=== PATIENT | female | born 1990 | race Caucasian/White ===

== ENCOUNTER 2018-08-14 23:01 | Emergency (ER) | payer MEDICAID, OTHER ==
--- NOTE | 2018-08-14 23:35 | ED Physician Chart ---
ED Chief Complaint/HPI - Patient Information Date Seen:: 08/14/18 Time Seen:: 23:28 Chief Complaint:: Lower abdominal pain History of Present Illness:: 28 yo female, , last was 14 months ago, had low abdominal pain for 2-3 days each month in between menstrual cycles for 4 months. Today's episode of abdominal pain and cramp started this morning and was the worst. Pt could not tolerate any more thus presented to ER. Pt denied any fever, nausea or vomiting. 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, No abnormal vaginal bleed Musculoskeletal: No bone or joint pain Neurological: No focal symptoms ED Past Medical History - Past Medical History Past Medical History: No significant medical hx Social History: Non Smoker, Alcohol (Socially), No Drug Use Surgical History: other (tonsilectomy, D&C x 2) Family Medical History - Family Member Mother History Unknown: Yes ED Physical Exam - Physical Examination General/Constitutional: Awake, Alert Head: Atraumatic Eyes: PERRL Skin: No skin lesions ENMT: Nasal exam nl Neck: No nuchal rigidity Respiratory: No Wheeze/Rhonchi/Rales Cardio Vascular: RRR, No murmur, gallop, rubs, NL S1 S2 Other GI comments:: Suprapubic and LLQ tenderness Extremities: normal strength in all extremities Neuro/Psych: No focal deficits ED Labs/Radiology/EKG Results - Lab Results Results: Laboratory Last Values WBC 7.8 Th/cmm (4.8-10.8) 08/14/18 23:56 RBC 4.74 Mil/cmm (3.80-5.10) 08/14/18 23:56 Hgb 14.2 gm/dL (12-16) 08/14/18 23:56 Hct 42.2 % (41.0-60) 08/14/18 23:56 MCV 89.0 fl (81-100) 08/14/18 23:56 MCH 29.9 pg (27.0-31.0) 08/14/18 23:56 MCHC Differential 33.6 pg (28.0-36.0) 08/14/18 23:56 RDW 12.7 % (11.5-20.0) 08/14/18 23:56 Plt Count 287 Th/cmm (150-400) 08/14/18 23:56 MPV 7.7 fl 08/14/18 23:56 Neutrophils % 63.1 % (40.0-80.0) 08/14/18 23:56 Lymphocytes % 26.5 % (20.0-50.0) 08/14/18 23:56 Monocytes % 7.1 % (2.0-10.0) 08/14/18 23:56 Eosinophils % 2.4 % (0.0-5.0) 08/14/18 23:56 Basophils % 0.9 % (0.0-2.0) 08/14/18 23:56 PT 10.2 SECONDS (9.5-11.5) 08/14/18 23:56 INR 0.98 (0.5-1.4) 08/14/18 23:56 PTT (Actin FS) 25.2 SECONDS (26.0-38.0) L 08/14/18 23:56 Sodium 138 mEq/L (136-145) 08/14/18 23:56 Potassium 3.7 mEq/L (3.5-5.1) 08/14/18 23:56 Chloride 104 mEq/L (98-107) 08/14/18 23:56 Carbon Dioxide 25.9 mEq/L (21.0-31.0) 08/14/18 23:56 Anion Gap 11.8 (7.0-16.0) 08/14/18 23:56 BUN 16 mg/dL (7-25) 08/14/18 23:56 Creatinine 0.7 mg/dL (0.6-1.2) 08/14/18 23:56 Est GFR ( Amer) > 60.0 ml/min (>90) 08/14/18 23:56 Est GFR (Non-Af Amer) > 60.0 ml/min 08/14/18 23:56 BUN/Creatinine Ratio 22.9 08/14/18 23:56 Glucose 85 mg/dL (70-105) 08/14/18 23:56 Calcium 8.9 mg/dL (8.6-10.3) 08/14/18 23:56 Total Bilirubin 0.6 mg/dL (0.3-1.0) 08/14/18 23:56 AST 17 U/L (13-39) 08/14/18 23:56 ALT 13 U/L (7-52) 08/14/18 23:56 Alkaline Phosphatase 35 U/L (34-104) 08/14/18 23:56 Total Protein 6.7 gm/dL (6.0-8.3) 08/14/18 23:56 Albumin 4.4 gm/dL (3.7-5.3) 08/14/18 23:56 Globulin 2.3 gm/dL 08/14/18 23:56 Albumin/Globulin Ratio 1.9 (1.0-1.8) H 08/14/18 23:56 Lipase 19 U/L (11-82) 08/14/18 23:56 Urine Source MIDSTREAM 08/14/18 23:00 Urine Color YELLOW 08/14/18 23:00 Urine Clarity CLEAR (CLEAR) 08/14/18 23:00 Urine pH 7.5 (4.6 - 8.0) 08/14/18 23:00 Ur Specific [place] 1.015 (1.005-1.030) 08/14/18 23:00 Urine Protein NEGATIVE mg/dL (NEGATIVE) 08/14/18 23:00 Urine Glucose (UA) NEGATIVE mg/dL (NEGATIVE) 08/14/18 23:00 Urine Ketones NEGATIVE mg/dL (NEGATIVE) 08/14/18 23:00 Urine Blood NEGATIVE (NEGATIVE) 08/14/18 23:00 Urine Nitrate NEGATIVE (NEGATIVE) 08/14/18 23:00 Urine Bilirubin NEGATIVE (NEGATIVE) 08/14/18 23:00 Urine Urobilinogen 0.2 E.U./dL (0.2 - 1.0) 08/14/18 23:00 Ur Leukocyte Esterase NEGATIVE (NEGATIVE) 08/14/18 23:00 Urine Test NEGATIVE 08/14/18 23:00 - Radiology Results Results: Pelvic U/S: negative exam ED Assessment - Assessment General Assessment: Premenstrual syndrome Assessment/Comments:: Toradol 30mg IV ED Septic Shock - . Is Septic Shock (SBP<90, OR Lactate>4 mmol\L) present?: No - <6hrs of presentation: Vital Signs: Vital Signs - 8 hr 08/14/18 23:05 Temp 98.1 F HR 68 RR 18 BP 126/86 O2 Sat % 99 ED Reassessment (Disposition) - Reassessment Reassessment Condition:: Improved - Aftercare/Follow up Instructions Notes:: Follow up PCP and Press [employer], or return to ER if symptoms worsen. - Patient Disposition Discharge/Transfer:: Home
[2018-08-15 00:20] LABS: % BASOPHILS 0.9 % (0.0-2.0); % EOSINOPHILS 2.4 % (0.0-5.0); % LYMPHOCYTES 26.5 % (20.0-50.0); % MONOCYTES 7.1 % (2.0-10.0); % NEUTROPHILS 63.1 % (40.0-80.0); BASOPHILE ABSOLUTE 0.1 Th/cumm (0-0.2); EOSINOPHILE ABSOLUTE 0.2 Th/cmm (0.1-0.4); HEMATOCRIT 42.2 % (41.0-60); HEMOGLOBIN 14.2 gm/dL (12-16); LYMPHOCYTE ABSOLUTE 2.1 Th/cmm (1.5-3.0); MEAN CORPUSCULAR HEMOGLOBIN 29.9 pg (27.0-31.0); MEAN CORPUSCULAR HGB CONC 33.6 pg (28.0-36.0); MEAN PLATELET VOLUME 7.7 fl; MONOCYTE ABSOLUTE 0.6 Th/cmm (0.3-1.0); NEUTROPHILE ABSOLUTE 4.8 Th/cmm (1.8-8.0); PLATELET COUNT 287 Th/cmm (150-400); RED BLOOD COUNT 4.74 Mil/cmm (3.80-5.10); RED CELL DISTRIBUTION WIDTH 12.7 % (11.5-20.0); WHITE BLOOD COUNT 7.8 Th/cmm (4.8-10.8)
[2018-08-15 00:26] LABS: ALB/GLOB RATIO 1.9 (1.0-1.8); ALBUMIN 4.4 gm/dL (3.7-5.3); ALKALINE PHOSPHATASE 35 U/L (34-104); ANION GAP 11.8 (7.0-16.0); BILIRUBIN,TOTAL 0.6 mg/dL (0.3-1.0); BUN - UREA NITROGEN 16 mg/dL (7-25); CALCIUM SERUM 8.9 mg/dL (8.6-10.3); CARBON DIOXIDE 25.9 mEq/L (21.0-31.0); CHLORIDE 104 mEq/L (98-107); CREATININE - SERUM 0.7 mg/dL (0.6-1.2); GFR AFRICAN-AMERICAN > 60.0 ml/min (>90); GFR NON AFRICAN-AMERICAN > 60.0 ml/min; GLUCOSE 85 mg/dL (70-105); LIPASE 19 U/L (11-82); POTASSIUM SERUM 3.7 mEq/L (3.5-5.1); SGOT 17 U/L (13-39); SGPT/ALT 13 U/L (7-52); SODIUM SERUM 138 mEq/L (136-145); TOTAL PROTEIN,SERUM 6.7 gm/dL (6.0-8.3)
[2018-08-15 00:27] LABS: INR 0.98 (0.5-1.4); PROTHROMBIN TIME (TEST) 10.2 SECONDS (9.5-11.5)
[2018-08-15 00:38] LABS: URINE SOURCE MIDSTREAM
[2018-08-15 00:42] LABS: URINE BILIRUBIN NEGATIVE (NEGATIVE); URINE BLOOD NEGATIVE (NEGATIVE); URINE GLUCOSE (UA) NEGATIVE (NEGATIVE); URINE KETONE NEGATIVE (NEGATIVE); URINE LEUKOCYTE ESTERASE NEGATIVE (NEGATIVE); URINE NITRATE NEGATIVE (NEGATIVE); URINE PH 7.5 (4.6 - 8.0); URINE PROTEIN NEGATIVE (NEGATIVE); URINE UROBILINOGEN 0.2 E.U./dL (0.2 - 1.0)
[2018-08-15 00:43] LABS: URINE CLARITY CLEAR (CLEAR); URINE COLOR YELLOW; URINE MICROSCOPIC INDICATED? NO
--- NOTE | 2018-08-15 09:41 | Diagnostic Imaging Report ---
Pelvic ultrasound HISTORY: Pain The exam is limited to transabdominal sonographic technique. Exam of the uterus somewhat limited due to incomplete distention of the bladder. The uterus measures approximately 10.0 x 4.9 x 5.3 cm. No focal myometrial lesions are seen. The ovaries and adnexal regions are unremarkable. No abnormal masses. No free fluid in the pelvis. IMPRESSION: Negative examination
== END 2018-08-15 02:30 | disposition home or self-care (01) ==
LOC: ER 23:01
DX: N94.3 Premenstrual tension syndrome (principal)
CPT/HCPCS: 99284; 96374; 76856; 36415; 85025; 85610; 81003; 81025; 83690; 80053; J1885; Z7502